=== PATIENT | female | born 1995 | race Caucasian/White ===

== ENCOUNTER 2021-12-13 10:58 | Emergency (ER) | payer MEDICAID ==
[~2021-12-13] VITALS: Ht 175 cm; Wt 79.0 kg
[2021-12-13] MEDS ORDERED: BIRTH CONTROL (11:23)
[2021-12-13] MEDS ORDERED: NS IV 1000 ML 1,000 ML IV STA (11:24)
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
[2021-12-13] MEDS ORDERED: KETOROLAC 30 MG/ML VIAL IV ONE (11:30)
[2021-12-13] MEDS ORDERED: LIDOCAINE 2% VISCOUS 15 ML UDC PO ONE (11:30)
[2021-12-13] MEDS ORDERED: ANTACID SUSP 30 ML UDC (MYLANTA) PO ONE (11:30)
[2021-12-13] MEDS ORDERED: ONDANSETRON 4 MG/2 ML (SDV) Z0FRAN IVP ONE (11:30)
[2021-12-13] MEDS ORDERED: ONDA4TAB11 PO (12:51)
[2021-12-13 12:59] VITALS: BP 133/90
== END 2021-12-13 12:59 | disposition home or self-care (01) ==
LOC: EDUNIT# 10:58 → ER 11:00
DX: R11.2 Nausea with vomiting, unspecified (principal); Z28.310 Unvaccinated for COVID-19; Z32.02 Encounter for pregnancy test, result negative
CPT/HCPCS: 36415; 84703

== ENCOUNTER 2022-10-09 04:22 | Emergency (ER) | payer MEDICAID ==
[~2022-10-09] VITALS: Ht 175 cm; Wt 79.0 kg
[~2022-10-09 04:22] MED LIST: BIRTH CONTROL; ONDA4TAB11 PO
[2022-10-09] MEDS ORDERED: LEVO1TBD (04:35)
[2022-10-09 05:11] LABS: AMPHETAMINE SCREEN, URINE NEGATIVE (NEGATIVE); BENZODIAZEPINES SCREEN URINE NEGATIVE (NEGATIVE); COCAINE SCREEN URINE NEGATIVE (NEGATIVE)
[2022-10-09 05:12] LABS: BARBITURATE SCREEN URINE NEGATIVE (NEGATIVE); CANNABINOID SCREEN, URINE POSITIVE (NEGATIVE); METHADONE STAT NEGATIVE (NEGATIVE); OPIATE SCREEN URINE NEGATIVE (NEGATIVE); OXYCODONE STAT NEGATIVE (NEGATIVE); PROPOXYPHENE STAT NEGATIVE (NEGATIVE); TRICYCLIC ANTIDEPRESSANTS SCRE NEGATIVE (NEGATIVE)
[2022-10-09] MEDS ORDERED: ONDANSETRON 4 MG (ZOFRAN) ORAL DISSOLVE TAB PO ONE ×2 (05:30→06:00)
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
[2022-10-09] MEDS ORDERED: KETOROLAC 30 MG/ML VIAL IVP ONE (06:00)
[2022-10-09] MEDS ORDERED: SCOPOLAMINE 1.5 MG (TRANSDERM-SCOP) PATCH TD ONE (06:00)
[2022-10-09] MEDS ORDERED: KETO10TA PO (06:01)
[2022-10-09] MEDS ORDERED: ONDA8TAB13 PO (06:01)
[2022-10-09] MEDS ORDERED: MECL-149 PO (06:01)
[2022-10-09] MEDS ORDERED: CYCL10TA25 PO (06:01)
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
[2022-10-09 06:04] VITALS: BP 151/105
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
== END 2022-10-09 06:09 | disposition home or self-care (01) ==
LOC: EDUNIT# 04:22 → ER 04:26
DX: S09.90XA Unspecified injury of head, initial encounter (principal); T14.8XXA Other injury of unspecified body region, initial encounter; T50.996A Underdosing of other drugs, medicaments and biological substances, initial encounter; M54.2 Cervicalgia; M54.6 Pain in thoracic spine; F12.90 Cannabis use, unspecified, uncomplicated; F10.90 Alcohol use, unspecified, uncomplicated; I10 Essential (primary) hypertension; Z91.128 Patient's intentional underdosing of medication regimen for other reason; Y04.8XXA Assault by other bodily force, initial encounter
CPT/HCPCS: 70450; 72125; 72128; 72131; 80306; 84703